=== PATIENT | female | born 1975 | race Caucasian/White ===

== ENCOUNTER → 2018-10-15 | Outpatient (CLI) | payer OTHER ==
[~2018-10-15] MED LIST: FLEXERIL PO; MEDROLDOSEPACK PO; MOBIC15 MG PO; TIROSINT88 MCG PO; spironolactone PO
--- NOTE | ~2018-10-15 | PAINCON ---
[address] [address] PAIN MANAGEMENT CONSULTATION Name: CHRISTINA VARGAS [id number] Admission: 10/15/18 Attend Phys: Lily Gonzalez MD Discharge: Date of : 77 Report #: [id number] THIS REPORT FOR: //name// CC: Flip Gonzalez DATE OF SERVICE: 10/15/2018 CHIEF COMPLAINT: Pain in the low back around the front and down the back of the leg. FOLLOWUP HISTORY: The patient is a 43-year-old female who has been referred to the Pain Clinic because of pain and discomfort which she has been experiencing since 2016. She has had pain and discomfort, which has waxed and waned over the years. She did a "big Q-going project in 2016." At that time, she injured her back and has had problems since then. She has undergone chiropractic treatment. Has undergone massage therapy and has undergone physical therapy. Overall, things have not gotten significantly better. The patient states that she does have scoliosis in her upper back. Does continue to exercise on a regular basis. She is able to do the yoga and rates her pain as a 5/10. She has used Flexeril as well as nonsteroidal anti-medications like Elavil. She has not had back surgery. She has had an MRI, which showed some annular fissure in the lower portion of her back. Also, she has been noted to have some degenerative disk disease in the low back area. Sometimes the pain is quite problematic. She states that she sometimes goes home and goes to bed at 7:30 because of discomfort. Has found that sometimes use of a heating pad can be beneficial. She denies any bowel or bladder symptoms. ALLERGIES: No known drug allergies. MEDICATIONS: Spironolactone 150 mg daily, levothyroxine 0.88 mcg daily, Flexeril 10 mg p.r.n. PAST MEDICAL HISTORY: Hypercholesterolemia, muscle spasms, fatigue, constipation, hypothyroidism and lumbar radiculopathy SOCIAL HISTORY: She is a manager investment banking, an artist, mother, she is working. REVIEW OF SYSTEMS: Questionnaire indicates generally good health, recent weight change, wears glasses, joint pain, joint stiffness, weakness of muscles and joints, muscle pain/cramping, back pain, difficulty walking, varicose veins, numbness and tingling sensation in the lower extremity. LABORATORY DATA: MRI of the lumbar spine dated on 09/15/2018 alignment mild dextroscoliosis of the upper lumbar spine and thoracolumbar junction. Vertebral body heights are maintained. No significant anterior, [place] [id number] PAIN MANAGEMENT CONSULTATION Name: CHRISTINA VARGAS Room: [facility] Florencio#: [id number] Admission: 10/15/18 Attend Phys: Lily Gonzalez MD Discharge: Date of : 77 Report #: [id number] spondylolisthesis. Conus medullaris and cauda equina normal. T12 through L1 unremarkable. L1-L2 unremarkable. L2-L3, no disk protrusion or spinal canal stenosis. Mild facet ligamentum flavum hypertrophy. L3-L4, minimal disk bulge without focal disk extrusion. Bilateral facet/ligamentum flavum hypertrophy and small right facet joint cyst. No significant central spinal canal or foraminal stenosis. L4-L5 mild disk desiccation and predominantly right-sided discogenic endplate changes with small Schmorl's node. Broad-based right lateral disk bulge and osteophyte in conjunction with facet and ligamentum flavum resulting right neural foraminal narrowing abutting the exiting L4 nerve root. L5-S1 broad-based disk bulge with left paracentral T2 annular fissure abuts the anterior margin of the descending left S1 nerve root. Left-sided cold, joint nerve root. PAIN CLINIC ASSESSMENT/PQRS: 1. History of osteoarthritis. The patient is not being treated for osteoarthritis or rheumatoid arthritis. 2. Height 5 feet 8 inches, weight 150 pounds, BMI is 22.9. 3. Vital signs: Blood pressure 136/79, heart rate 107, respiratory rate 16, room air saturation 99%, temperature 98.4. 4. Pain intensity 5/10. 5. Fall history: The patient has not fallen in the last 3 months. 6. Blood thinner: The patient is not on blood thinning medication. 7. Hypertension. The patient has not been treated for hypertension. 8. Opioid greater than 6 weeks. The patient is not on opioid regimen. 9. Risk assessment. Low for opioid use. 10. Functional assessment tool 60/70. 11. Recreational drug use. The patient denies use of recreational drugs. 12. Tobacco: The patient denies use of tobacco. 13. Alcohol: The patient occasionally drinks alcoholic beverage. PHYSICAL EXAMINATION: GENERAL: The patient is a well-developed, well-nourished white female. Appears her stated age. She is alert and oriented x 3. Affect is appropriate. Speech is fluent. HEENT: Normocephalic, atraumatic. Extraocular eye muscles intact. Sclerae nonicteric. Mucous membranes are moist. NECK: Without adenopathy or JVD. HEART: Regular rate. S1, S2. LUNGS: Clear to auscultation without rhonchi or rales. EXTREMITIES: Upper extremity muscle strength is judged to be 5/5 for the major [address] [address] PAIN MANAGEMENT CONSULTATION Name: CHIP VARGASCHAS Fischer Room: [facility]#: [id number] Admission: 10/15/18 Attend Phys: Lily Gonzalez MD Discharge: Date of : 77 Report #: [id number] muscle groups in the upper extremity. The patient has a mild dextroscoliosis in the thoracolumbar area. Upper extremity muscle strength is judged to be 5/5 for the major muscle groups. Deep tendon reflexes are +2 bilaterally for biceps. The patient does have some perception of some pins and needle sensation in the left small finger. Has some numbness on occasion in the right middle finger bus mechanic strength 5/5. ABDOMEN: Nontender. Bowel sounds present. BACK: Notes some pain and discomfort in the right hip. She is experiencing some pain that radiates down into her leg on the right hip down the buttocks. Also, has some discomfort in approximately T12-T10 through T12 area to palpation. Forward bending, the patient is able to easily touch her fingers to the floor. Left and right lateral bending not problematic. Left and right lateral rotation not problematic, anterior spring test is negative. Posterior spring test negative. Joe sign negative. The patient has some discomfort, some straight leg raise discomfort on the right. IMPRESSION: Lumbar radiculopathy. 2. RECOMMENDATIONS: We discussed treatment options with the patient. Risks and benefits of an epidural steroid injection were reviewed. At this juncture with like to try the most conservative approach. The patient will try a nonsteroidal anti-inflammatory medication, Mobic. She will also be given a Medrol Dosepak to take. Should her pain continue to be problematic, we will consider an epidural steroid injection in the future. We would like to thank you for letting us participate in her care. We hope she continues to improve. By: [id number]. Silverio Gonzalez MD /patience
== END ==
LOC: M.PC 05:27
DX: M54.16 Radiculopathy, lumbar region (principal)

== ENCOUNTER → 2018-11-24 | Outpatient (CLI) | payer OTHER ==
--- NOTE | ~2018-11-24 | PAINCON ---
[address] [address] PAIN MANAGEMENT CONSULTATION Name: CHIP VARGASCHAS Fischer Room: [facility] GordoSuryStephanieSury#: [id number] Admission: 11/24/18 Attend Phys: Lily Gonzalez MD Discharge: Date of : 77 Report #: [id number] THIS REPORT FOR: //name// CC: NEELA Gonzalez DATE OF SERVICE: 11/24/2018 CHIEF COMPLAINT: Sacroiliac joint pain, here for an injection. HISTORY: The patient is a 43-year-old female who has been seen in the pain clinic because of chronic pain and discomfort. She has been having pain since 2016. She recalls worsening of her pain since the [employer] project in 2015. She had been having back problems since that period. She has undergone chiropractic treatment. Has had massage therapy. She has undergone physical therapy. Overall, things continue to be problematic. She was given Medrol Dosepak. It was felt that there was some benefit from that. Does have some scoliosis in her upper back. Continues to exercise and do yoga. Has used nonsteroidal anti-inflammatory medications as well as muscle relaxants like Flexeril. She did have an MRI, which showed an annular fissure in the lower portion of her back. Overall, she feels that her pain continues to be problematic and rates it as a 6-7/10. She has returned to the pain clinic today with a desire of undergone an epidural steroid injection. She recently was found to have a mild case of shingles. Overall, feels like that problem has gone. Does continue to do yoga daily. ALLERGIES: No known drug allergies. MEDICATIONS: Spironolactone 150 mg, levothyroxine 88 mcg, Flexeril 10 mg p.r.n. PAIN CLINIC ASSESSMENT/PQRS: 1. The patient does have a history of osteoarthritis. She has not been treated for rheumatoid arthritis. 2. Height 5 feet 8 inches, weight 151 pounds, BMI is 23.1. 3. Vital signs: Blood pressure 113/68, heart rate 72, respiratory rate 16, room air saturations 100%, temperature is 98.5. 4. Pain intensity 6-7/10. 5. Fall history. The patient has not fallen in the last 3 months. 6. Blood thinner. The patient is not on a blood thinning medication. 7. Hypertension. The patient is not being treated for hypertension. 8. Opioids greater than 6 weeks, low for opioid use. 9. Risk assessment tool. 10. Functional assessment tool 60/70. 11. Recreational drug use. The patient denies use of recreational drugs. 12. Tobacco: The [place] [address] PAIN MANAGEMENT CONSULTATION Name: CHRISTINA VARGAS Room: [facility]#: [id number] Admission: 11/24/18 Attend Phys: Lily Gonzalez MD Discharge: Date of : 77 Report #: [id number] 13. Alcohol: The patient denies frequent alcoholic beverages. PHYSICAL EXAMINATION: GENERAL: The patient is a well-developed, well-nourished white female. Appears her stated age. She is alert and oriented x 3. Affect is appropriate. Speech is slow. HEENT: Normocephalic, atraumatic. Extraocular eye muscles intact. Sclerae nonicteric. Mucous membranes are moist. NECK: Without adenopathy or JVD. EXTREMITIES: Upper extremity muscle strength judged to be 5/5 for the major muscle groups in the upper extremity. Lower extremity, the patient has some muscle strength is judged to be 5/5 for the major muscle group in the lower extremity. The patient has mild dextroscoliosis in the thoracolumbar area. The patient has had in the past some problems with numbness with pins and needle sensation in her left small finger. Has had some in the right middle finger. Automotive Porter strength 5/5. ABDOMEN: Nontender. Bowel sounds present. MUSCULOSKELETAL: The patient has pain and discomfort in the right hip area. Has pain that is radiating down into the right buttock area. Joe's sign is positive. Anterior and posterior spring test, positive. IMPRESSION: Pain and discomfort in the low back area with pain in the right sacroiliac joint area. RECOMMENDATIONS: We discussed treatment options with the patient. Risks and benefits of the SI joint injection were discussed. They could include but are not limited to infection, worsening pain, nerve damage, or bleeding. The patient elects to proceed. PROCEDURE NOTE: The patient was assisted in getting on the examination table. Fluoroscopy was used to identify the low back area. SI joint was noted. Her back was sterilely prepped with a Betadine solution. It was allowed to dry. Fluoroscopy after appropriate identification of the SI joint was implemented. 0.25% bupivacaine was infiltrated in the skin as a skin wheal. A 25-gauge needle was then advanced into the low back area near the SI joint. A 20-gauge spinal needle was then advanced into the SI joint. After appropriate positioning 180 Omnipaque was injected. Appropriate movement of the dye was noted. A total of 80 mg Depo-Medrol and 4 mL of 0.25% bupivacaine was injected. The patient tolerated the procedure well. She remained in the Pain Clinic for an appropriate amount of time. A total of 30 seconds fluoroscopy time was used. The patient will follow up in the future as needed. We would like to thank you for letting us participate in her care. We hope she continues to improve. By: [id number]. Silverio Gonzalez MD /PMT
== END | disposition home or self-care (01) ==
LOC: M.PC 11:40
DX: M53.3 Sacrococcygeal disorders, not elsewhere classified (principal); G89.29 Other chronic pain; M19.90 Unspecified osteoarthritis, unspecified site; Z79.899 Other long term (current) drug therapy

== ENCOUNTER → 2019-02-16 | Outpatient (CLI) | payer OTHER ==
--- NOTE | ~2019-02-16 | PAINCON ---
[address] [address] PAIN MANAGEMENT CONSULTATION Name: CHIP VARGASCHAS Fischer [facility] [id number] Admission: 02/16/19 Attend Phys: Lily Gonzalez MD Discharge: Date of : 77 Report #: [id number] THIS REPORT FOR: //name// CC: Flip Gonzalez DATE OF SERVICE: 02/16/2019 CHIEF COMPLAINT: "Here for sacroiliac joint injection. It was helpful in the past." HISTORY: The patient is a 43-year-old female who has been seen in the Pain Clinic because of chronic pain. She has noticed some increased pain in her back. She has done landscape work. She has had some pain and discomfort since that period. She has undergone chiropractic treatment. She had massage therapy. She has also undergone physical therapy. She continues to have some pain and discomfort. A Medrol Dosepak given in the past has been of some benefit. The patient continues to do yoga and stretching exercises. She has returned today with a desire to undergo an SI joint injection. ALLERGIES: No known drug allergies. MEDICATIONS: Spironolactone 150 mg, levothyroxine 88 mcg, Flexeril 10 mg p.r.n. PAIN CLINIC ASSESSMENT AND PQRS: 1. The patient does have a history of osteoarthritis. She is not being treated for rheumatoid arthritis. 2. Height 5 feet 8 inches, weight 151 pounds, BMI is 23.1. 3. Vital signs: Blood pressure 123/70, heart rate 81, respiratory rate 16, room air saturation 97%, temperature 98.3. 4. Pain intensity: 5/10. 5. Fall history: The patient has not fallen in the last 3 months. 6. Blood thinner: The patient is not on a blood thinning medication. 7. Hypertension: The patient is not being treated for hypertension. 8. Opioids greater than 6 weeks: The patient is at low risk for opioid use. 9. Risk assessment tool. 10. Functional assessment tool: 60/70. 11. Recreational drug use: The patient denies use of recreational drugs. 12. Tobacco: The patient denies use of tobacco. 13. Alcohol: The patient denies frequent use of alcoholic beverages. PHYSICAL EXAMINATION: GENERAL: The patient is a well-developed, well-nourished, white female. She appears her stated age. She is alert and oriented x 3. Her affect is appropriate. Speech is fluent. HEENT: Normocephalic, atraumatic. Extraocular [place] [address] PAIN MANAGEMENT CONSULTATION Name: CHRISTINA VARGAS Room: [facility]#: [id number] Admission: 02/16/19 Attend Phys: Lily Gonzalez MD Discharge: Date of : 77 Report #: [id number] nonicteric. Mucous membranes are moist. NECK: Without adenopathy or JVD. EXTREMITIES: Upper extremity muscle strength is judged to be 5/5 for the major muscle groups in the upper extremity. Lower extremity muscle strength is judged to be 5/5 for the major muscle groups in the lower extremity. She has mild dextroscoliosis in thoracolumbar area. ABDOMEN: Nontender. Bowel sounds present. MUSCULOSKELETAL: The patient has pain and discomfort in the right buttocks down in the area of the right sacroiliac joint. Joe's sign is positive with pain in the right SI joint. Anterior and posterior spring tests are positive with pain increasing in the right sacroiliac joint area. IMPRESSION: Exacerbation of pain in the right sacroiliac joint. The patient had greater than 2 months of improvement after the last injection. RECOMMENDATIONS: We discussed treatment options with the patient. Risks and benefits of an SI joint injection were again discussed. The possible complications of the procedure, which could include infection, worsening of pain, no improvement in pain, trauma to the nerve, and bleeding were explained and the patient elects to proceed. PROCEDURE NOTE: The patient was taken to the procedure area. She was assisted in getting on the examination table. A pillow was placed under her abdomen to bolster and improve positioning. Anterior, posterior as well as lateral viewing using fluoroscopy were undertaken. The patient's back was sterilely prepped with betadine solution. A 25-gauge needle was then advanced into the right SI joint area and injected with 0.25% bupivacaine to numb the area. A 20-gauge spinal needle was then directed into the inferior portion of the sacroiliac joint. Contrast media was injected. Appropriate flow was noted. Aspiration was negative for heme. A total of 80 mg Depo-Medrol, 4 mL of 0.5% bupivacaine was injected. The patient tolerated the procedure well. A total of 20 seconds fluoroscopy time was used. The patient's pain decreased to 0 at the time of discharge. She will follow up in the future as needed. There were no complications with the right sacroiliac joint injection. By: [id number]. Silverio Gonzalez MD /patience
== END | disposition home or self-care (01) ==
LOC: M.PC 12-22 08:00
DX: M53.3 Sacrococcygeal disorders, not elsewhere classified (principal); G89.29 Other chronic pain; Z79.899 Other long term (current) drug therapy

== ENCOUNTER → 2019-08-10 | Outpatient (CLI) | payer OTHER ==
--- NOTE | 2019-08-25 09:09 | PAINCON ---
[address] [address] PAIN MANAGEMENT CONSULTATION Name: CHRISTINA VARGAS [id number] Admission: 08/10/19 Attend Phys: Lily Gonzalez MD Discharge: Date of : 77 Report #: [id number] THIS REPORT FOR: //name// CC: Flip Gonzalez DATE OF SERVICE: 08/10/2019 CHIEF COMPLAINT: Low back pain. HISTORY: The patient is a 44-year-old female who has been seen in the pain clinic in the past because of back pain. She has noted increase in her pain. She states that she has noticed a worsening of her pain since changing of the weather. Her in-laws both about March. Since that time, family members have been cleaning their property for sale of items. She participated. Notes that her pain has been quite problematic since that time. She feels she may have overworked herself. She feels that a Medrol Dosepak might be helpful. She has used meloxicam in the past. She also has used Flexeril and feels that this medication is helpful with muscle spasms. She would like to have these medications renewed. Notes that her pain increases with bending, heat and rest. 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 Notes that this pain in the back area can be problematic with these activities. ALLERGIES: No known drug allergies. CURRENT MEDICATIONS: Spironolactone, levothyroxine 88 mcg, Flexeril 10 mg p.r.n. PAIN CLINIC ASSESSMENT AND PQRS: 1. The patient does have a history of osteoarthritis. She is not being treated for rheumatoid arthritis. 2. Height 5 feet 8 inches, weight 155 pounds, BMI is 23.6. 3. Vital signs: Blood pressure 137/78, heart rate 73, respiratory rate 16, room air saturation 100%, temperature 98.4. 4. Pain intensity, 1-2/10 depending on the activity. 5. Fall history, the patient has not fallen in the last 3 months. 6. Blood thinner, the patient is not on a blood thinning medication. 7. Hypertension, the patient is not being treated for hypertension. 8. Opioids greater than 6 weeks. The patient receives medications. She is not on a current medication regimen using opioids. 9. Risk assessment tool, low. 10. Functional assessment tool, 60/70. 11. Recreational drug use, the patient denies use of recreational drugs. 12. Tobacco, the patient denies use of tobacco. 13. Alcohol, the patient denies frequent [place] [address] PAIN MANAGEMENT CONSULTATION Name: CHRISTINA VARGAS Room: [facility]#: [id number] Admission: 08/10/19 Attend Phys: Lily Gonzalez MD Discharge: Date of : 77 Report #: [id number] PHYSICAL EXAMINATION: GENERAL: The patient is a well-developed, well-nourished, white female. Appears her stated age. She is alert and oriented x 3. Her affect is appropriate. Speech is fluent. HEENT: Normocephalic, atraumatic. Extraocular eye muscles intact. Sclerae nonicteric. Mucous membranes are moist. NECK: Without adenopathy or JVD. HEART: Regular rate. ABDOMEN: Nontender. EXTREMITIES: Upper extremity muscle strength judged to be 5/5 for the major muscle groups in the upper extremity. The patient has some pain and discomfort in the lower portion of her back. The patient has a history of mild dextroscoliosis in the thoracolumbar area. ABDOMEN: Nontender. Bowel sounds present. MUSCULOSKELETAL: The patient has some discomfort in the buttocks areas. Has had a history of right sacroiliac joint dysfunction. IMPRESSION: 1. Exacerbation of back pain after readying items for an estate sale. 2. History of right sacroiliac joint dysfunction. RECOMMENDATIONS: We discussed treatment options with the patient. The patient feels that a Medrol Dosepak would be helpful. We discussed the benefits of nonsteroidal anti-inflammatory medications like Mobic. These medications can be helpful. The patient states that she does not take aspirin medications. We will have the patient try Mobic 15 mg 1 p.o. daily on a p.r.n. basis. She will also continue with Flexeril 10 mg 1 p.o. t.i.d. as needed. A script for prednisone has been provided. She will try a Medrol Dosepak and call us if she has any concerns. We would like to thank you for letting us participate in her care. We hope she continues to improve. <ELECTRONICALLY SIGNED> By: Lily Gonzalez MD 08/25/19 0909 [id number]. Silverio Gonzalez MD /XANDER
== END ==
LOC: M.PC 05:14
DX: M54.5 Low back pain (principal)